=== PATIENT | male | born 1995 | race Caucasian/White ===

== ENCOUNTER 2023-03-06 18:06 | Emergency (ER) | payer BC ==
[~2023-03-06] VITALS: Ht 175.3 cm; Wt 108.5 kg
[2023-03-06 18:30] LABS: BASOPHILS 0.8 % (0-2); EOSINOPHILS 1.4 % (0-6); HEMATOCRIT 41.7 % (35.0-50.0); HEMOGLOBIN 14.2 g/dL (12.0-18.0); LYMPHOCYTES 20.9 % (24-44); MCH 30.5 (27-36); MCHC 33.9 g/dl (30-36); MCV 89.7 fl (81-99); MONOCYTES 7.7 % (0-12); NEUTROPHILS 69.2 % (39-80); PLATELET COUNT 394 K/uL (140-440); RBC 4.65 M/ul (4.3-5.7); RDW 13.1 (10.5-15.0)
[2023-03-06 18:50] LABS: ALBUMIN 3.6 g/dL (3.4-5.0); ALBUMIN/GLOBULIN RATIO 0.72 (1.1-2.4); ALKALINE PHOSPHATASE 89 U/L (46-116); ALT (SGPT) 20 U/L (14-59); ANION GAP 14.5 (7-21); AST (SGOT) 12 U/L (15-37); BILIRUBIN, TOTAL 0.2 ng/dL (0.2-1.0); CALCIUM 8.9 mg/dL (8.5-10.1); CARBON DIOXIDE 27 mmol/L (21-32); CHLORIDE 99 mmol/L (98-107); CREATININE, SERUM 0.88 mg/dL (0.70-1.30); GLOMERULAR FILTRATION RATE,EST 122 mL/min (>60); MAGNESIUM 1.6 mg/dL (1.8-2.4); POTASSIUM 3.5 mmol/L (3.5-5.1); PROTEIN, TOTAL 8.6 g/dL (6.4-8.2); TSH, 3RD GENERATION 0.776 uIU/mL (0.358-3.740); UREA NITROGEN 11 mg/dL (7-18)
[2023-03-06 19:30] LABS: AMPHETAMINES, UR NEGATIVE (NEGATIVE); BARBITURATES, UR NEGATIVE (NEGATIVE); BENZODIAZEPINES, UR NEGATIVE (NEGATIVE); BUPRENORPHINE,UR NEGATIVE (NEGATIVE); COCAINE, UR NEGATIVE (NEGATIVE); MARIJUANA (THC), UR NEGATIVE (NEGATIVE); MDMA, UR NEGATIVE (NEGATIVE); METHADONE, UR NEGATIVE (NEGATIVE); METHAMPHETAMINE, UR NEGATIVE (NEGATIVE); OPIATES, UR NEGATIVE (NEGATIVE); OXYCODONE, UR NEGATIVE (NEGATIVE); PHENCYCLIDINE, UR NEGATIVE (NEGATIVE); TRICYCLIC ANTIDEPRESSANT, UR NEGATIVE (NEGATIVE)
[2023-03-06 19:45] LABS: BILIRUBIN, URINE NEGATIVE (negative); BLOOD/HGB, URINE NEGATIVE (Negative); KETONE, URINE NEGATIVE (Negative); LEUK ESTERASE, URINE NEGATIVE (negative); NITRITE, URINE NEGATIVE (negative)
[2023-03-06] MEDS ORDERED: MAGNESIUM OXID400 M1 PO (20:00)
[2023-03-06 20:50] VITALS: BP 140/86
--- NOTE | 2023-03-06 21:41 | EKG ---
[facility] [address] [facility] [place] [address] Signed Sinus tachycardia Otherwise normal ECG No previous ECGs available Confirmed by Jigna Richmond MD () on 03/06/2023 9:40:59 PM Electronically Signed By: JIGNA RICHMOND MD 03/06/232140 PATIENT NAME: MONY CORTEZ Electrocardiogram DATE OF : [birth year] PHYSICIAN: JIGNA RICHMOND MD REPORT #: [id number] REPORT IS CONFIDENTIAL AND NOT TO BE RELEASED WITHOUT AUTHORIZATION
[2023-03-08 03:34] LABS: THYROXINE 8.42 ug/dL (4.50-11.70)
== END 2023-03-06 20:50 | disposition home or self-care (01) ==
LOC: ED 18:06
PROVIDERS: Emergency Medicine; Internal Medicine
DX: R00.2 Palpitations (principal); F41.9 Anxiety disorder, unspecified; E83.42 Hypomagnesemia; F90.9 Attention-deficit hyperactivity disorder, unspecified type; F32.A Depression, unspecified; Z79.899 Other long term (current) drug therapy
CPT/HCPCS: 36415; 80053; 81003; 83735; 84436; 84443; 84484; 85025; 93005; 93010; 93270; 99285-25; J7121

== ENCOUNTER 2023-05-18 06:25 | Day surgery (SDC) | payer OTHER ==
[~2023-05-18] VITALS: Ht 175.3 cm; Wt 112.7 kg
[~2023-05-18 06:25] MED LIST: CARAFATE1 GM PO; ESCITALOPRAM OXA5 MG PO; ESTRADIOL2 MG PO; FINASTERIDE5 MG PO; MAGNESIUM OXID400 M1 PO; PROGESTERONE100 MG PO; PROTONIX40 MG PO; SPIRONOLACTONE50 MG PO
[2023-05-18 06:42] VITALS: BP 142/80
--- NOTE | 2023-05-18 07:11 | NUR ---
PT DENIED NEEDS. DECLINED BEDSIDE PRAYER. PRAYED FOR SUCCESSFUL PROCEDURE AND SNEED RECOVERY FROM OUTSIDE ROOM.
--- NOTE | 2023-05-18 08:00 | NUR ---
05/18/23 0800 Beba Mukherjee PT TO PACU AWAKE BUT DROWSEY DENIES PAIN AND NAUSEA REPORTS HE IS VERY TIRED AND FELL BACK TO SLEEP.
[2023-05-18 08:28] VITALS: BP 125/71
--- NOTE | 2023-05-19 08:19 | OR ---
[facility] [address] [place], [place] [address] Signed DATE OF OPERATION: 05/18/2023 SURGEON: Vaibhav Montano MD PREOPERATIVE DIAGNOSES: 1. Epigastric abdominal pain. 2. Chronic diarrhea. POSTOPERATIVE DIAGNOSES: 1. Mild diffuse gastritis. 2. GE junction at 35 cm. PROCEDURE: EGD with CLOtest and biopsies of the duodenum, pyloric bulb, antrum and GE junction. ESTIMATED BLOOD LOSS: None. INDICATIONS: Mony is a 27-year-old gentleman, who said he has significant anxiety and stress throughout his life. He has to take medication for it. He said sometimes the stress bothers his intestines. He had gone to our emergency room in March of this year. He was having chest pain, shortness of breath and palpitations. His evaluation was negative. He went back in April and had epigastric abdominal pain. With the morphine, his pain went away. Also, his GI cocktail and Protonix helped. He was given Carafate, but after just a few days he gave up on the Carafate. He has been to his primary care provider. He is also using marijuana to help with his anxiety. He had been asked to see me for an upper endoscopy with biopsies. He said overall he feels better. In the office, I gave him a pamphlet on upper endoscopy. We had reviewed the nature of that test. There is risk including, but not limited to gas bloating, crampy abdominal pain, bleeding, perforation requiring surgery, and missed diagnosis. We also reviewed the need for IV conscious sedation. He understands that an adult person has to take him home afterwards. His grandfather is with him today. His grandfather specifically requested that no information be given to him directly. We will be seeing Mony back in the office in a week or so for followup. He had expressed understanding and wished to proceed. DESCRIPTION OF PROCEDURE: Mony was taken into our endoscopy suite and placed in the supine semi-recumbent position. The posterior oropharynx was anesthetized with lidocaine spray. A bite block Electronically Signed By: VAIBHAV MONTANO MD 05/19/23 0819 PATIENT NAME: MONY CORTEZ OPERATIVE REPORT DATE OF : [birth year] REPORT #: [id number] PHYSICIAN: VAIBHAV MONTANO MD PCP: SUMEET PATINO MD REPORT IS CONFIDENTIAL AND NOT TO BE RELEASED WITHOUT AUTHORIZATION [facility] [address] [place], [place] [address] Signed was utilized for the case. He was given a total of 7 mg of Versed and 100 mcg of fentanyl to cover the case. The adult gastroscope was introduced and slowly advanced down his esophagus and out into the duodenum under direct visualization. The duodenum and pyloric channel were unremarkable. He appears to have very healthy mucosa and an unremarkable bile. We took a biopsy of the duodenum and pyloric channel due the history of diarrhea and abdominal pain. In his stomach, he has diffuse mild erythematous changes throughout consistent with mild gastritis. There were no ulcerations. We took a biopsy of the antrum for CLOtest as well as pathologic review. Upon retroflexion of the scope, we can see the incisura, body and fundus of the stomach were unremarkable. There was no evidence of hiatal hernia. The scope was withdrawn up through the area of the GE junction, which was compliant without stricture. There was no gastric or esophageal varices. The GE junction has very minimal if any disruption along the edge. There were really no inflammatory changes. There was no Bland's mucosa. We went ahead and took a biopsy for pathologic review along the edge of the Z-line. The distal, middle and upper esophagus were unremarkable. After this, the gas was suctioned out and the gastroscope removed. Mony tolerated the procedure quite well. RECOMMENDATIONS: I will see Mony back in my office in 7 to 14 days to review his results. Vaibhav Montano MD ALB/MODL /[id number] cc: MD Vaibhav Kolb MD Copies: VAIBHAV MONTANO MD ~ Electronically Signed By: VAIBHAV MONTANO MD 05/19/23 0819 PATIENT NAME: MONY CORTEZ OPERATIVE REPORT DATE OF : [birth year] REPORT #: [id number] PHYSICIAN: VAIBHAV MONTANO MD PCP: SUMEET PATINO MD REPORT IS CONFIDENTIAL AND NOT TO BE RELEASED WITHOUT AUTHORIZATION
--- NOTE | 2023-05-20 15:19 | PATH ---
[facility] [address] [facility] [place] [address] Signed SPECIMEN(S): A DUODENAL BIOPSY SPECIMEN(S): B PYLORUS BIOPSY SPECIMEN(S): C ANTRUM BIOPSY SPECIMEN(S): D GE JUNCTION SPECIMEN SOURCE: A. DUODENAL BIOPSY B. PYLORUS BIOPSY C. ANTRUM BIOPSY D. GE JUNCTION CLINICAL HISTORY: Epigastric pain. Abd pain. Chronic diarrhea. Dx: Gastritis. FINAL PATHOLOGIC DIAGNOSIS: A. Duodenal biopsy: - Benign duodenal mucosa, negative for specific diagnostic abnormality. B. Pylorus biopsy: - Benign duodenal mucosa with focal slight acute mucosal inflammation. - Negative for significant chronic epithelial inflammation. - Negative for significant villous effacement. C. Antrum biopsy: - Benign gastric-type mucosa with focal slight chronic inflammation. - Negative for evidence of Helicobacter organisms on routine HE-stained sections. D. Gastroesophageal junction: - Esophageal and gastric-type mucosa with focal slight chronic inflammation. - Negative for specialized intestinal metaplasia or dysplasia. JVR:[facility] MICROSCOPIC EXAMINATION: Histologic sections of all submitted blocks are examined by light microscopy. These findings, together with the gross examination, support the pathologic diagnosis. GROSS DESCRIPTION: A. The specimen, labeled and designated "Tommie, duodenal biopsy," is received in formalin and consists of one cruz soft tissue fragment, 0.4 cm. Entirely submitted in (A1). B. The specimen, labeled and designated "Okjacey, pylorus biopsy," is received in formalin and consists of one cruz soft tissue fragment, 0.4 cm. Entirely PATIENT NAME: MONY CORTEZ PATHOLOGY DATE OF : [birth year] REPORT #: [id number] PHYSICIAN: AZEB PATHOLOGY PCP: SUMEET PATINO MD REPORT IS CONFIDENTIAL AND NOT TO BE RELEASED WITHOUT AUTHORIZATION [facility] [address] [place], [place] [address] Signed submitted in (B1). C. The specimen, labeled and designated "Tommie, antrum biopsy," is received in formalin and consists of one crzu soft tissue fragment, 0.2 cm. Entirely submitted in (C1). D. The specimen, labeled and designated "Tommie, GE junction," is received in formalin and consists of one cruz soft tissue fragment, 0.3 cm. Entirely submitted in (D1). VB (under the direct supervision of a pathologist) The Gross Description was prepared using a voice recognition system. The report was reviewed for accuracy; however, sound-alike word errors, addition and/or deletions may occur. If there is any question about this report, please contact Client Services. PERFORMING LABORATORY: Technical component was performed by [facility], [address] [place] [id number] (CLIA# [id number]). Professional interpretation was performed by [facility], [address] [place] [id number] (CLIA#: [id number]). Diagnostician: Tyrone Rao MD Pathologist Electronically Signed 05/20/2023 Copies: ~ PATIENT NAME: MONY CORTEZ PATHOLOGY DATE OF : [birth year] REPORT #: [id number] PHYSICIAN: AZEB GIBBONS PCP: SUMEET PATINO MD REPORT IS CONFIDENTIAL AND NOT TO BE RELEASED WITHOUT AUTHORIZATION
== END 2023-05-18 08:35 | disposition home or self-care (01) ==
LOC: DS 06:25 → OPS 06:25 → DS 07:30 → OPS 08:35
PROVIDERS: ATTEND Colon & Rectal Surgery
PROC: 0DB68ZX Excision of Stomach, Via Natural or Artificial Opening Endoscopic, Diagnostic (ICD-10-PCS; 2023-05-18)
PROC: 0DB98ZX Excision of Duodenum, Via Natural or Artificial Opening Endoscopic, Diagnostic (ICD-10-PCS; principal; 2023-05-18 07:30)
DX: K29.60 Other gastritis without bleeding (principal); J45.909 Unspecified asthma, uncomplicated; F90.9 Attention-deficit hyperactivity disorder, unspecified type; F43.10 Post-traumatic stress disorder, unspecified; F32.A Depression, unspecified; F64.0 Transsexualism
CPT/HCPCS: 36415; 87077; 99153; G0500; J2250; J3010; J7121

== ENCOUNTER 2023-05-20 23:54 | Emergency (ER) | payer OTHER ==
[~2023-05-20] VITALS: Ht 175.3 cm; Wt 113.8 kg
--- OUTSIDE RECORDS SUMMARY | 2023-05-21 | XMS ---
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 Rocco has no Care Guidelines for this patient. [place] VIS[facility] COUNT (12 MO.) 3 [facility] TOTAL 3 NOTE: Visits indicate total known visits. ED/C VISIT TRACKING (12 MO.) 05/20/2023 23:55 [facility] [place] TYPE: Emergency COMPLAINT: - ABD PAIN 04/25/2023 19:07 [facility] [place] TYPE: Emergency COMPLAINT: - ABD PAIN DIAGNOSES: - Allergy to other foods - Gastritis, unspecified, without bleeding - Other rodent exterminator (current) drug therapy - Right upper quadrant pain 03/06/2023 18:08 [facility] [place] TYPE: Emergency COMPLAINT: - TIGHTNESS IN CHEST DIAGNOSES: - Anxiety disorder, unspecified - Attention-deficit hyperactivity disorder, unspecified type - Depression, unspecified - Hypomagnesemia - Other rodent exterminator (current) drug therapy - Palpitations INPATIENT VISIT TRACKING (12 MO.) No inpatient visits to display in this time frame [email or web address]
[2023-05-21 00:24] LABS: BASOPHILS 0.5 % (0-2); EOSINOPHILS 2.3 % (0-6); HEMOGLOBIN 12.7 g/dL (12.0-18.0); LYMPHOCYTES 21.4 % (24-44); MCHC 33.4 g/dl (30-36); MCV 89.9 fl (81-99); MONOCYTES 6.8 % (0-12); PLATELET COUNT 275 K/uL (140-440); RBC 4.23 M/ul (4.3-5.7); RDW 12.9 (10.5-15.0)
[2023-05-21 00:39] LABS: ALBUMIN 3.2 g/dL (3.4-5.0); ALBUMIN/GLOBULIN RATIO 0.8 (1.1-2.4); ANION GAP 13.5 (7-21); BILIRUBIN, TOTAL 0.4 ng/dL (0.2-1.0); BUN/CREATININE RATIO 13.63 (6.0-28.6); CALCIUM 8.5 mg/dL (8.5-10.1); CREATININE, SERUM 1.1 mg/dL (0.70-1.30); POTASSIUM 3.5 mmol/L (3.5-5.1); PROTEIN, TOTAL 7.2 g/dL (6.4-8.2)
[2023-05-21 01:51] LABS: BILIRUBIN, URINE NEGATIVE (negative); BLOOD/HGB, URINE NEGATIVE (Negative); KETONE, URINE TRACE (Negative); LEUK ESTERASE, URINE NEGATIVE (negative); NITRITE, URINE NEGATIVE (negative)
[2023-05-21] MEDS ORDERED: ONDANSETRON ODT8 MG PO (01:57)
[2023-05-21] MEDS ORDERED: HYDROCODON-ACE1 EA10 PO (01:57)
[2023-05-21 02:10] VITALS: BP 121/62
[2023-05-22] MEDS ORDERED: PANTOPRAZOLE SO40 MG PO (09:59)
[2023-05-22] MEDS ORDERED: BUPROPION XL150 MG PO (10:01)
[2023-05-22] MEDS ORDERED: ESTRACE2 MG PO (16:00)
== END 2023-05-21 02:10 | disposition home or self-care (01) ==
LOC: ED 23:54
PROVIDERS: Family Medicine
DX: K80.70 Calculus of gallbladder and bile duct without cholecystitis without obstruction (principal); Z91.018 Allergy to other foods; Z79.890 Hormone replacement therapy; Z79.899 Other long term (current) drug therapy
CPT/HCPCS: 36415; 76705; 80053; 81003; 83690; 85025; 96374; 96375; 99284-25; A9270; J2270; J2405; J7030

== ENCOUNTER 2023-05-21 13:43 | Observation (INO) | payer OTHER ==
[~2023-05-21] VITALS: Ht 175.3 cm; Wt 113.1 kg
[~2023-05-21 13:43] MED LIST changes: +HYDROCODON-ACE1 EA10 PO; +ONDANSETRON ODT8 MG PO
--- OUTSIDE RECORDS SUMMARY | 2023-05-21 13:50 | XMS ---
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 Rocco has no Care Guidelines for this patient. [place]al[place] VISIT COUNT (12 MO.) 4 [facility] T[facility] 4 NOTE: Visits indicate total known visits. ED/C VISIT TRACKING (12 MO.) 05/21/2023 13:44 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
[2023-05-21 15:30] LABS: BASOPHILS 0.4 % (0-2); EOSINOPHILS 2.4 % (0-6); HEMATOCRIT 38.4 % (35.0-50.0); HEMOGLOBIN 12.8 g/dL (12.0-18.0); MCH 30.1 (27-36); MCHC 33.3 g/dl (30-36); MCV 90.4 fl (81-99); MONOCYTES 9.1 % (0-12); NEUTROPHILS 71.1 % (39-80); PLATELET COUNT 261 K/uL (140-440); RBC 4.25 M/ul (4.3-5.7); RDW 13.1 (10.5-15.0)
[2023-05-21 15:47] LABS: ALBUMIN/GLOBULIN RATIO 0.71 (1.1-2.4); ANION GAP 14.5 (7-21); BUN/CREATININE RATIO 12.5 (6.0-28.6); CALCIUM 8.3 mg/dL (8.5-10.1); CREATININE, SERUM 0.8 mg/dL (0.70-1.30); POTASSIUM 3.5 mmol/L (3.5-5.1); PROTEIN, TOTAL 7.2 g/dL (6.4-8.2)
[2023-05-21 18:08] VITALS: BP 134/75
[2023-05-21 20:55] VITALS: BP 156/80
[2023-05-22] VITALS (9 sets, daily range): BP systolic 102–141; BP diastolic 54–85
[2023-05-22 05:24] LABS: BASOPHILS 0.7 % (0-2); EOSINOPHILS 5.3 % (0-6); HEMATOCRIT 36.7 % (35.0-50.0); HEMOGLOBIN 12.3 g/dL (12.0-18.0); LYMPHOCYTES 36.3 % (24-44); MCH 30.3 (27-36); MCHC 33.5 g/dl (30-36); MCV 90.4 fl (81-99); MONOCYTES 10.7 % (0-12); PLATELET COUNT 238 K/uL (140-440); RBC 4.06 M/ul (4.3-5.7); RDW 13.3 (10.5-15.0)
[2023-05-22 05:39] LABS: ALBUMIN 2.8 g/dL (3.4-5.0); ALBUMIN/GLOBULIN RATIO 0.74 (1.1-2.4); ANION GAP 8.5 (7-21); BILIRUBIN, TOTAL 1.2 ng/dL (0.2-1.0); BUN/CREATININE RATIO 9.09 (6.0-28.6); CREATININE, SERUM 0.77 mg/dL (0.70-1.30); POTASSIUM 3.5 mmol/L (3.5-5.1); PROTEIN, TOTAL 6.6 g/dL (6.4-8.2)
[2023-05-22] MEDS ORDERED: PANTOPRAZOLE SO40 MG PO (09:59)
[2023-05-22] MEDS ORDERED: BUPROPION XL150 MG PO (10:01)
--- NOTE | 2023-05-22 13:56 | HP ---
[facility] [address] [place], [place] [address] Signed ADMISSION DATE: 05/21/2023 REASON FOR ADMISSION: Acute calculous cholecystitis. HISTORY OF PRESENT ILLNESS: This 27-year-old white man is "transitioning" (male to female) and does take estrogen as part of his outpatient medications. He presented to the emergency room last night with right upper abdominal pain, evaluated by Dr. Atkinson. An ultrasound was performed, which confirmed gallstones. He was sent home with opiate pain medications and dietary recommendations ostensibly to follow up in the future, He predictably presented once again today with persistent severe right upper abdominal pain. He was evaluated by Dr. Javier, who found him to have tenderness in the right subcostal area consistent with acute cholecystitis. Additionally, his evaluation included a repeat CBC showing a white count of 9.9, hematocrit 38.4, but now with elevated liver enzymes, AST 129, ALT 130, bilirubin 1.0, and alkaline phosphatase was 98. He is admitted for further evaluation and care for acute calculous cholecystitis. 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 He has never had abdominal surgery or any other operation that he admits to at this time. He does have underlying asthma. He does not use alcohol and does use THC edibles which caused mild GI upset. MEDICATIONS: His medications at home include Carafate, pantoprazole, Hunter, and Zofran. Other ongoing medications include progesterone, estradiol, spironolactone, and finasteride. SOCIAL HISTORY: He lives with his grandmother who accompanies him at this time. He works at [employer] locally. REVIEW OF SYSTEMS: He denies any shortness of breath or chest pain. He has had no dysphagia, dysuria, hematemesis, or blood per rectum. His pain is in the right subcostal area, less so into the back. PHYSICAL EXAMINATION: GENERAL: This is a somewhat obese white man with an ambiguous gender appearance. VITAL SIGNS: Temperature is 98.4, pulse 87, blood pressure 150/87. Electronically Signed By: NEWTON WEINER MD 05/22/23 1356 PATIENT NAME: MONY CORTEZ HISTORY AND PHYSICAL DATE OF : [birth year] REPORT #: [id number] PHYSICIAN: NEWTON WEINER MD PCP: SUMEET PATINO MD REPORT IS CONFIDENTIAL AND NOT TO BE RELEASED WITHOUT AUTHORIZATION [facility] [address] [place], [place] [address] Signed TRACHEA: Midline. Mucous membranes are moist. CHEST: Clear. HEART: Regular without murmur. ABDOMEN: Obese, but soft. There is tenderness in right subcostal area. There is no palpable mass. EXTREMITIES: Show no clubbing, cyanosis, or edema. LABORATORY DATA: Lab studies were as described including white count 9.2, hematocrit 38.4, and platelets are 261,000. Chem profile normal. Bilirubin 1.0, AST 129, ALT 130, and alkaline phosphatase 98. ASSESSMENT AND PLAN: The patient has acute calculous cholecystitis. I have reviewed his ultrasound and its attendant report. It shows no sign of intrahepatic ductal dilatation. He is admitted at this time to undergo IV antibiotic administration, IV fluids, parental pain medications, and so forth, anticipating cholecystectomy most likely tomorrow. The risk of bleeding, infection, bile duct injury, need for open procedure, need for common duct exploration and so forth were all reviewed with him. He understands and he wishes to proceed. MD TRICIA Wallace/SHELBYL /[id number] cc: MD Dr. Demetrio Bojorquez Copies: RANCHO JAVIER MD ~ Electronically Signed By: NEWTON WEINER MD 05/22/23 1356 PATIENT NAME: MONY CORTEZ HISTORY AND PHYSICAL DATE OF : [birth year] REPORT #: [id number] PHYSICIAN: NEWTON WEINER MD PCP: SUMEET PATINO MD REPORT IS CONFIDENTIAL AND NOT TO BE RELEASED WITHOUT AUTHORIZATION
[2023-05-22] MEDS ORDERED: ESTRACE2 MG PO (16:00)
[2023-05-23 02:49] VITALS: BP 112/62
[2023-05-23 05:24] VITALS: BP 114/73
[2023-05-23 10:35] VITALS: BP 130/75
[2023-05-23] MEDS ORDERED: ACETAMINOPHEN500 MG PO (12:38)
[2023-05-23] MEDS ORDERED: IBUPROFEN600 MG PO (12:38)
[2023-05-23 13:25] VITALS: BP 133/76
--- NOTE | 2023-05-23 14:05 | OR ---
[facility] [address] [place], [place] [address] Signed DATE OF OPERATION: 05/22/2023 SURGEON: Newton Weiner MD PREOPERATIVE DIAGNOSES: 1. Acute calculous cholecystitis. 2. Obesity. 3. "Transitioning.". POSTOPERATIVE DIAGNOSES: 1. Acute calculous cholecystitis. 2. Obesity. 3. "Transitioning.". PROCEDURES: 1. Laparoscopic cholecystectomy with intraoperative cholangiogram. 2. Surgeon-directed fluoroscopy. ANESTHESIA: General endotracheal, Álvaro Khalil, BULKING MACHINE OPERATOR and local 10 mL of 0.25% Marcaine with epinephrine. INDICATION: This 27-year-old white man presented to the emergency room two nights ago with right subcostal pain and tenderness and found on gallbladder ultrasound to have gallstones. He was evaluated by Dr. Atkinson. He was sent home with oral pain medication with recommendation to follow up as an outpatient with a surgeon. He presented, predictably, within 24 hours with worsening of his symptoms including right subcostal pain, elevation of liver enzymes, and findings consistent still with acute calculous cholecystitis. He was admitted given an intravenous antibiotics, parenteral pain medication and plan was made for cholecystectomy at this time. The patient is transitioning from male to female and has been taking estradiol which may or may not have contributed to gallstone formation. He is admitted to undergo cholecystectomy at this time. He understands the risk of bleeding, infection, bile duct injury, need for open procedure, need for other indicated procedures. He understands and wished to proceed. FINDINGS: The gallbladder was tense and inflamed as expected. Once excised, the gallbladder showed multiple yellow mulberry gallstones. Cholangiogram was normal. The liver had fatty infiltration. He did have bleeding at the epigastric trocar site at the outset of Electronically Signed By: NEWTON WEINER MD 05/23/23 1405 PATIENT NAME: MONY CORTEZ OPERATIVE REPORT DATE OF : [birth year] REPORT #: [id number] PHYSICIAN: NEWTON WEINER MD PCP: SUMEET PATINO MD REPORT IS CONFIDENTIAL AND NOT TO BE RELEASED WITHOUT AUTHORIZATION [facility] [address] [place], [place] [address] Signed the procedure which required control and replacement of the epigastric port site, but there was no sign of ongoing bleeding or other problem. PROCEDURE IN DETAIL: The patient was brought to the operating room, given a general endotracheal anesthetic. Ancef antibiotic was given in the operating room. Sequential compression device stockings used. The abdomen was clipped and prepared with a chlorhexidine solution and draped sterilely after satisfactory general endotracheal anesthesia. An infraumbilical incision was made and using an open Mani cannula technique pneumoperitoneum was achieved to a level of 14 mmHg of carbon dioxide gas. Intra-abdominal inspection showed a fatty liver as well as a distended and inflamed and edematous gallbladder. Under direct visualization, epigastric port was placed. This resulted in some arterial bleeding immediately noted at the trocar site. The trocar was removed and using a Elliott-Esther device, the bleeding secured with an 0 Vicryl tie. Good hemostasis was noted at that point. An additional incision was made somewhat inferior and medial to this, allowing for placement of a 12 mm port as per usual and without untoward bleeding. Two additional trocars were placed in the right side, both 5 mm in size. The gallbladder was elevated cephalad and found to be quite tense and distended. Omental adhesions were noted. The gallbladder was decompressed of clear green bilious fluid allowing for more effective elevation cephalad. The omental adhesion was taken down with blunt electrocautery dissection, the infundibulum was grasped and retracted laterally and using blunt electrocautery dissection the triangle of Calot was dissected free. Ultimately, the cystic duct was well identified. A clip was applied across gallbladder cystic duct junction and transverse choledochotomy made in the cystic duct. Egress of clear bile was noted. Using Campa type catheter system, intraoperative cholangiography was undertaken showing free flow of contrast in the biliary tree with prompt emptying into the duodenum. Catheter was removed. The cystic duct was triply clipped and divided. The gallbladder dissected free in a retrograde fashion using electrocautery. Gallbladder was placed in an endobag and extracted through the infraumbilical port site opened on the back table and found to have many 1 cm yellow mulberry gallstones. Mucosa showed no sign of neoplasm. Irrigation was undertaken in subhepatic space and electrocautery used for hemostasis. There was no sign of bile leak, bleeding or other problems. Excess irrigation fluid including previously spilled blood was suctioned free completely. Plans were then made for closure. The trocars removed under direct visualization showing no sign of bleeding, particular at the epigastric port site. The infraumbilical fascial incision was reapproximated with interrupted 0 Vicryl suture. 10 mL of 0.25% Marcaine with epinephrine was injected locally. The skin was closed with interrupted 3-0 Vicryl. Steri-Strips were applied. Blood loss in aggregate was considered 50 mL based on the epigastric port site bleeding Electronically Signed By: NEWTON WEINER MD 05/23/23 1405 PATIENT NAME: MONY CORTEZ SYBIL OPERATIVE REPORT DATE OF : [birth year] REPORT #: [id number] PHYSICIAN: NEWTON WEINER MD PCP: SUMEET PATINO MD REPORT IS CONFIDENTIAL AND NOT TO BE RELEASED WITHOUT AUTHORIZATION [facility] [address] [place] [address] Signed at the outset. Sponge, needle and instrument counts reported as correct x3. MD TRICIA Wallace/DEENA /[id number] cc: MD Thiago Kolb MD Dr. Servin Copies: THIAGO JAVIER MD ~ Electronically Signed By: NEWTON WEINER MD 05/23/23 1405 PATIENT NAME: MONY CORTEZ OPERATIVE REPORT DATE OF : [birth year] REPORT #: [id number] PHYSICIAN: NEWTON WEINER MD PCP: SUMEET PATINO MD REPORT IS CONFIDENTIAL AND NOT TO BE RELEASED WITHOUT AUTHORIZATION
--- NOTE | 2023-05-23 14:05 | DS ---
[facility] [address], [place] [address] Signed ADMISSION DATE: 05/21/2023 DISCHARGE DATE: 05/23/2023 REASON FOR ADMISSION: Acute calculous cholecystitis. HISTORY OF PRESENT ILLNESS: This 27-year-old obese white man is "transitioning" from male to female and does take estrogen as part of his outpatient medications. He presented to the emergency room on May 20 with right upper abdominal pain, evaluated by Dr. Atkinson. An ultrasound confirmed gallstones. He was sent home with opiate pain medications and dietary recommendations ostensibly to follow up in the future. As predicted, he presented once again with worsening pain in the right upper quadrant, was evaluated by Dr. Javier, found to have tenderness and findings completely consistent with acute cholecystitis. He is admitted for further evaluation and care. PERTINENT PHYSICAL EXAMINATION: GENERAL: Showed an obese white man of ambiguous gender appearance. VITAL SIGNS: Temperature is 98.4, pulse is 97, blood pressure 150/87. ABDOMEN: Obese, but soft. There is tenderness in right subcostal area. There is no mass. LABORATORY STUDIES: Showed white count of 9.9, hematocrit 38.4, platelets 261,000. Bilirubin 1.0, AST 129, ALT 130, alkaline phosphatase 98. HOSPITAL COURSE: He was fluid resuscitated, given intravenous antibiotic Ancef, parenteral pain medication and on May 22, 2023, he underwent laparoscopic cholecystectomy with intraoperative cholangiogram. He was found to have acute calculous cholecystitis. Cholangiogram was normal. The gallbladder had multiple mulberry yellow gallstones and the gallbladder was quite inflamed. The postoperative course was unremarkable. He tolerated regular diet, oral pain medication, so forth and was discharged home on postoperative #1, doing well. DISCHARGE MEDICATIONS: Will include: 1. Motrin 600 mg p.o. q.6 hours p.r.n. pain. 2. Tylenol 1000 mg p.o. q.6 hours as needed for pain. He will resume his usual medications including the escitalopram one tablet p.o. daily, progesterone 100 mg p.o. at bedtime. Electronically Signed By: NEWTON WEINER MD 05/23/23 1405 PATIENT NAME: MONY CORTEZ DISCHARGE SUMMARY DATE OF : [birth year] REPORT #: [id number] PHYSICIAN: NEWTON WEINER MD PCP: LIS PATINO MD REPORT IS CONFIDENTIAL AND NOT TO BE RELEASED WITHOUT AUTHORIZATION [facility] [address], [place] [address] Signed 3. Spironolactone 50 mg p.o. daily. 4. Estradiol 2 mg three tablets p.o. daily. 5. Finasteride 5 mg p.o. daily. 6. Antigo 5/325 one p.o. q.6 hours as needed for pain. 7. Zofran 8 mg t.i.d. as needed for nausea. 8. Estradiol (Estrace) 2 mg tablets p.o. at bedtime. DISCHARGE DIAGNOSES: 1. Acute calculous cholecystitis, status post laparoscopic cholecystectomy and intraoperative cholangiogram May 22, 2023. 2. Morbid obesity. 3. Transitioning male to female with estrogen and progesterone intake. FOLLOWUP PLAN: He will return to see me in one month. I have recommended him to lift no more than 20 pounds for the next two weeks. He may be permitted to shower tomorrow. He should leave [employer] on. He wishes to return to work on May 26 and I believe that is safe within the restrictions of lifting as described. MD TRICIA Wallace/DEENA /[id number] cc: MD Lis Bojorquez MD Dr. Servin Copies: RANCHO JAVIER MD ~ Electronically Signed By: NEWTON WEINER MD 05/23/23 1405 PATIENT NAME: MONY CORTEZ DISCHARGE SUMMARY DATE OF : [birth year] REPORT #: [id number] PHYSICIAN: NEWTON WEINER MD PCP: LIS PATINO MD REPORT IS CONFIDENTIAL AND NOT TO BE RELEASED WITHOUT AUTHORIZATION
--- NOTE | 2023-05-31 16:54 | PATH ---
[facility] [address], [place] [address] Signed SPECIMEN(S): A GALLBLADDER AND STONES SPECIMEN SOURCE: A. GALLBLADDER AND STONES CLINICAL HISTORY: Acute calculous cholecystitis. FINAL PATHOLOGIC DIAGNOSIS: Gallbladder and stones: - Chronic calculous cholecystitis. - Mucosal cholesterolosis. JVR:clv MICROSCOPIC EXAMINATION: Histologic sections of all submitted blocks are examined by light microscopy. These findings, together with the gross examination, support the pathologic diagnosis. GROSS DESCRIPTION: The specimen, labeled and designated "Jesika Reilly" and designated on the requisition "gallbladder and gallstones," is received in formalin and consists of: Specimen: Previously opened gallbladder. Dimensions: 6.8 x 4.5 x 0.7 cm. Serosa: Yellow-green and smooth. Cystic Duct: Inked, unobstructed. Calculi: Multiple yellow-brown multilobulated calculi, aggregate measurement 5.4 x 5.0 x 1.4 cm. Mucosa: Green and velvety with yellow flecking. Wall thickness: 0.4 cm. Lymph node: No pericystic lymph nodes are grossly identified. Additional: None. Wheat Cleaner sections are submitted in (A1). FB (under the direct supervision of a pathologist) The Gross Description was prepared using a voice recognition system. The report was reviewed for accuracy; however, sound-alike word errors, addition and/or deletions may occur. If there is any question about this report, please contact Client Services. PERFORMING LABORATORY: PATIENT NAME: MONY REILLY SYBIL PATHOLOGY DATE OF : [birth year] REPORT #: [id number] PHYSICIAN: AZEB GIBBONS PCP: SUMEET PATINO MD REPORT IS CONFIDENTIAL AND NOT TO BE RELEASED WITHOUT AUTHORIZATION [place] [id number] [facility] [place], [place] [address] Signed Technical component was performed by [facility], [address] [place] [address] (CLIA# [id number]). Professional interpretation was performed by [facility] [address] [address] (CLIA#: [id number]). Diagnostician: Tyrone Rao MD Pathologist Electronically Signed 05/31/2023 Copies: ~ PATIENT NAME: MONY REILLY SYBIL PATHOLOGY DATE OF : [birth year] REPORT #: [id number] PHYSICIAN: AZEB GIBBONS PCP: SUMEET PATINO MD REPORT IS CONFIDENTIAL AND NOT TO BE RELEASED WITHOUT AUTHORIZATION
== END 2023-05-23 13:30 | disposition home or self-care (01) ==
LOC: ED 13:43 → MS 13:55
PROVIDERS: Emergency Medicine; ADMIT Surgery; ATTEND Surgery
PROC: 0FT44ZZ Resection of Gallbladder, Percutaneous Endoscopic Approach (ICD-10-PCS; principal; 2023-05-22 11:00)
DX: K80.12 Calculus of gallbladder with acute and chronic cholecystitis without obstruction (principal); E66.01 Morbid (severe) obesity due to excess calories; Z68.36 Body mass index [BMI] 36.0-36.9, adult
CPT/HCPCS: 00790; 36415; 74300; 80053; 85025; 96372; 96374; 96375; 96376; 99284-25; A9270; G0378; J0330; J0690; J1100; J1644; J1885; J2001; J2250; J2270; J2405; J2704; J3010; J3490; J7030; J7121; Q9967

== ENCOUNTER 2024-04-18 07:14 | Day surgery (SDC) | payer OTHER ==
[~2024-04-18] VITALS: Ht 177.8 cm; Wt 117.5 kg
[~2024-04-18 07:14] MED LIST changes: +ACETAMINOPHEN500 MG PO; +BUPROPION XL150 MG PO; +ESTRACE2 MG PO; +IBLOOD GLUCOSE TEST STRIP 1 EA TEST VI PRN; +IBUPROFEN600 MG PO; +LACTATED RINGER'S 1,000 ML IV SCH; +LIDOCAINE HCL 1% 5 ML SDV INJ ONE; +MIDAZOLAM HCL 5 MG/5 ML VIAL IV PRN; +PANTOPRAZOLE SO40 MG PO; +PREMARIN; +VENTOLIN HFA18 GM INH; +fentaNYL citrate 100 MCG/2 ML VIAL IV PRN
--- NOTE | 2024-04-18 07:28 | NUR ---
PT NOT AVAILABLE FOR VISIT. CONNECTED WITH SUPPORT PERSON IN [place]. PROVIDED SUPPORTIVE PRESENCE, HOSPITALITY, PRAYER.
[2024-04-18 07:38] VITALS: BP 138/88
[2024-04-18] MEDS ORDERED: VENLAFAXINE HC150 MG PO (07:40)
[2024-04-18] MEDS ORDERED: ESTRADIOL40 MG/1 ML IM (07:42)
[2024-04-18] MEDS ORDERED: MIDAZOLAM HCL 5 MG/5 ML VIAL ONE (08:04)
[2024-04-18] MEDS ORDERED: fentaNYL citrate 100 MCG/2 ML VIAL ONE (08:04)
--- NOTE | 2024-04-18 08:54 | NUR ---
04/18/24 0854 Shanita Smart 0866 PT ARRIVED TO PACU ON 2L NC AND PT WAKES TO VERBAL STIMULI. PT ENCOURAGED TO PASS GAS AND PLAN OF CARE DISCUSSED AND PT EASILY FALLS BACK TO SLEEP. VSS.
[2024-04-18 09:23] VITALS: BP 129/88
--- NOTE | 2024-04-19 07:35 | OR ---
[facility] [address] [place], [place] [address] Signed DATE OF OPERATION: 04/18/2024 SURGEON: Vaibhav Montano MD PREOPERATIVE DIAGNOSES: 1. Intermittent blood associated with bowel movements. 2. Irritable bowel syndrome with diarrhea. 3. Maternal grandfather with colonic polyps. 4. Maternal grandmother with colonic polyps. POSTOPERATIVE DIAGNOSIS: Healed posterior midline anal fissure. PROCEDURE: Colonoscopy with random cold biopsies. ESTIMATED BLOOD LOSS: None. INDICATIONS: Mony is a 28-year-old gentleman, asked to see me for a colonoscopy. I helped him in the fall of 2022 for upper endoscopy. He has a lot of anxiety and he has irritable bowel syndrome with diarrhea. He said he has intermittent blood associated with his stool. He said sometimes it lasts up to two weeks. He knows his maternal grandfather and his maternal grandmother both had colonic polyps removed. No one in the family has had inflammatory bowel disease. In the office, I had given him a pamphlet on colonoscopy. We had reviewed that together. There is risk including, but not limited to gas bloating, crampy abdominal pain, bleeding, perforation requiring surgery, and missed diagnosis. We also reviewed the written instructions for the bowel prep line by line. We also reviewed his medications as well. He understands the need for IV conscious sedation. He did well with versed and fentanyl for the upper endoscopy. He had expressed understanding and wished to proceed. PROCEDURE IN DETAIL: Mony was taken into our endoscopy suite and placed in the left lateral decubitus position. He was given a total of 9 mg of Versed and 150 mcg of fentanyl to cover the case. A digital rectal exam was performed. He had good sphincter tone. No external hemorrhoids. No masses. With gentle traction, he may have had a very shallow healed posterior midline anal fissure. About 10% of all fissures are in the posterior midline. The anterior midline seemed unremarkable. It was a little difficult to see in the Electronically Signed By: VAIBHAV MONTANO MD 04/19/24 0735 PATIENT NAME: MONY CORTEZ OPERATIVE REPORT DATE OF : [birth year] REPORT #: [id number] PHYSICIAN: VAIBHAV MONTANO MD PCP: LIS PATINO MD REPORT IS CONFIDENTIAL AND NOT TO BE RELEASED WITHOUT AUTHORIZATION [facility] [address] [place] [id number] Signed room. After this, the adult colonoscope was introduced and advanced under direct visualization of the camera without difficulty. He had just a little extra sedation and mild abdominal compression to get the scope directly into the cecum itself. His prep was quite excellent. We could easily see the appendiceal orifice and the ileocecal valve. The scope was then slowly withdrawn. We took several pictures throughout for photodocumentation. We took multiple random cold biopsies throughout the colon for the history of diarrhea. Once in the rectum, the scope had been retroflexed and there was no additional pathology noted above the anal canal. After this, the gas was suctioned out and the colonoscope removed. Mony tolerated the procedure quite well. RECOMMENDATIONS: I will see Mony back in my office in 7 to 14 days to review his results. Vaibhav Montano MD ALB/MODL /[id number] cc: MD Lis Wilkes MD Copies: VAIBHAV MONTANO MD ~ Electronically Signed By: VAIBHAV MONTANO MD 04/19/24 0735 PATIENT NAME: MONY CORTEZ OPERATIVE REPORT DATE OF : [birth year] REPORT #: [id number] PHYSICIAN: VAIBHAV MONTANO MD PCP: LIS PATINO MD REPORT IS CONFIDENTIAL AND NOT TO BE RELEASED WITHOUT AUTHORIZATION
--- NOTE | 2024-04-21 15:59 | PATH ---
[facility] [address] [place], [place] [address] Signed SPECIMEN(S): A COLON BIOPSY SPECIMEN SOURCE: A. COLON BIOPSY CLINICAL HISTORY: Pre: Diarrhea. Rectal bleeding. Post: Unremarkable: FINAL PATHOLOGIC DIAGNOSIS: Colon, site, biopsy: - Colonic mucosa with no significant pathologic changes BRP MICROSCOPIC EXAMINATION: Histologic sections of all submitted blocks are examined by light microscopy. These findings, together with the gross examination, support the pathologic diagnosis. GROSS DESCRIPTION: The specimen, labeled and designated "Tommie colon biopsy," is received in formalin and consists of four cruz soft tissue fragments, ranging from 0.2 cm. Entirely submitted in (A1). JS (under the direct supervision of a pathologist) The Gross Description was prepared using a voice recognition system. The report was reviewed for accuracy; however, sound-alike word errors, addition and/or deletions may occur. If there is any question about this report, please contact Client Services. ADDITIONAL NOTES: Immunohistochemical and/or in situ hybridization studies if performed in this case included appropriate positive controls that reacted as expected. This test was developed and its performance characteristics determined by [facility]. It has not been cleared or approved by the U.S. Food and Drug Administration. The FDA has determined that such clearance or approval is not necessary. This test is used for clinical purposes. It should not be regarded as investigational or for research. [facility] is certified under the Clinical Laboratory Improvement Amendments of 1988 (CLIA) as qualified to perform high complexity clinical laboratory testing. PATIENT NAME: MONY CORTEZ PATHOLOGY DATE OF : [birth year] REPORT #: [id number] PHYSICIAN: AZEB PATHOLOGY PCP: SUMEET PATINO MD REPORT IS CONFIDENTIAL AND NOT TO BE RELEASED WITHOUT AUTHORIZATION [facility] [address] [facility] [place], [place] [address] Signed PERFORMING LABORATORY: Technical component was performed by [facility], [address] [place] [address] (CLIA# [id number]). Professional interpretation was performed by [facility], [facility] (CLIA# [id number]). Diagnostician: Eddi Matamoros MD Pathologist Electronically Signed 04/21/2024 Copies: ~ PATIENT NAME: MONY CORTEZ PATHOLOGY DATE OF : [birth year] REPORT #: [id number] PHYSICIAN: AZEB PATHOLOGY PCP: SUMEET PATINO MD REPORT IS CONFIDENTIAL AND NOT TO BE RELEASED WITHOUT AUTHORIZATION
== END 2024-04-18 09:29 | disposition home or self-care (01) ==
LOC: DS 07:14
PROVIDERS: ATTEND Colon & Rectal Surgery
PROC: 0DBE8ZX Excision of Large Intestine, Via Natural or Artificial Opening Endoscopic, Diagnostic (ICD-10-PCS; principal; 2024-04-18 08:15)
DX: K62.5 Hemorrhage of anus and rectum (principal); K58.0 Irritable bowel syndrome with diarrhea; F43.10 Post-traumatic stress disorder, unspecified; F90.2 Attention-deficit hyperactivity disorder, combined type; F32.1 Major depressive disorder, single episode, moderate; F64.9 Gender identity disorder, unspecified; Z79.899 Other long term (current) drug therapy; Z88.8 Allergy status to other drugs, medicaments and biological substances; Z90.49 Acquired absence of other specified parts of digestive tract; Z83.719 Family history of colon polyps, unspecified
CPT/HCPCS: 99153; G0500; J2250; J3010

== ENCOUNTER 2024-04-26 15:17 | Emergency (ER) | payer OTHER ==
[~2024-04-26] VITALS: Ht 177.8 cm; Wt 116.3 kg
[~2024-04-26 15:17] MED LIST changes: +ESTRADIOL40 MG/1 ML IM; -IBLOOD GLUCOSE TEST STRIP 1 EA TEST VI PRN; -LACTATED RINGER'S 1,000 ML IV SCH; -LIDOCAINE HCL 1% 5 ML SDV INJ ONE; -MIDAZOLAM HCL 5 MG/5 ML VIAL IV PRN; +VENLAFAXINE HC150 MG PO; -fentaNYL citrate 100 MCG/2 ML VIAL IV PRN
[2024-04-26] MEDS ORDERED: ACETAMINOPHEN 500 MG TAB PO ONE (19:00)
[2024-04-26 19:35] VITALS: BP 140/91
== END 2024-04-26 19:35 | disposition home or self-care (01) ==
LOC: ED 15:17
DX: R51.9 Headache, unspecified (principal); J45.909 Unspecified asthma, uncomplicated; Z88.8 Allergy status to other drugs, medicaments and biological substances; Z91.018 Allergy to other foods; Z79.899 Other long term (current) drug therapy
CPT/HCPCS: 99283; A9270